=== PATIENT | female | born 1965 ===

== ENCOUNTER 2018-01-31 09:30 | Day surgery (SDC) | payer BC ==
[2018-01-30 10:44] LABS: HEMOGLOBIN 13.9 g/dL (12-16); MCH 29.9 pg (26.0-34.0); MCHC 34.8 g/dL (31.0-37.0); MEAN PLATELET VOLUME 10.4 fL (7.4-10.4); RBC 4.65 10x6/uL (4.00-5.40); RDW 12.8 % (11.5-14.5); WBC 3.8 10x3/uL (4.8-10.8)
[~2018-01-31] VITALS: Ht 175.3 cm; Wt 106.8 kg
--- NOTE | ~2018-01-31 | OP ---
PATIENT NAME: PEPITO HERNÁNDEZ MEDICAL RECORD: [id number] :65 LOCATION:D.OPS ADMISSION DATE: SURGEON: KENTON PEREZ DATE OF OPERATION: 01/31/2018 SURGEON: Kenton Perez DPM PREOPERATIVE DIAGNOSES: 1. Hallux rigidus, left foot. 2. Ingrown toenail, left great toe. POSTOPERATIVE DIAGNOSES: 1. Hallux rigidus, left foot. 2. Ingrown toenail, left great toe. PROCEDURE: 1. First metatarsal osteotomy, left foot. 2. Permanent chemical removal of medial and lateral borders, left great toe nail. ANESTHESIA: General. HEMOSTASIS: Pneumatic ankle tourniquet inflated to 250 mmHg. ESTIMATED BLOOD LOSS: Minimal. MATERIALS: One [employer] 2.5 headless screw, 3-0 Vicryl, 5-0 Vicryl, 4-0 nylon. INJECTABLES: A 10 cc of 0.5% bupivacaine plain and 20 cc of 1.0% lidocaine plain. The patient has longstanding history of pain associated with the first metatarsophalangeal joint as well as an ingrown toenail. She had previously undergone a cheilectomy type procedure on this joint. She has redeveloped pain in the area. I have discussed with her the proposed procedure, risks and benefits were discussed. Complications were reviewed. All questions were answered. She does understand that we will evaluate the health of the joint intraoperatively. If the joint has a healthy amount of cartilage remaining, we will proceed with the shortening first metatarsal osteotomy. If the joint is too badly eroded, we will perform a first metatarsophalangeal joint arthrodesis. All questions answered. DESCRIPTION OF PROCEDURE: The patient was brought in the operating room and placed on the operating table in supine position. A timeout was called with Dr. Perez who identified the patient, the surgical site, and surgery to be performed. Once appropriate anesthesia was obtained, the foot was prepped and draped in the usual aseptic manner. Pneumatic ankle tourniquet was inflated to 250 mmHg on the well-padded left ankle. Attention was directed to the dorsal aspect of the first metatarsophalangeal joint where a 6 cm linear incision was made just medial to the extensor hallucis longus tendon. This incision was carried deep to soft tissue with care being OPERATIVE REPORT [id number] PEPITO HERNÁNDEZ S taken to retract all vital neurovascular structures. All bleeders were cauterized along the way. The periosteum was then reflected from the first metatarsophalangeal joint thus revealing a hypertrophied dorsal exostosis. The dorsal exostosis was removed with a sagittal saw. The first metatarsophalangeal joint was then opened and the joint was inspected. She was found to have a greater than 50% cartilage on the head of the first metatarsal and all cartilage remained present on the base of the proximal phalanx. At this time, the decision was made to perform the shortening osteotomy. Next, utilizing the sagittal saw, a V-shaped osteotomy was created in the head of the first metatarsal. This was a through and through osteotomy with the apex oriented distally. We then made a parallel cut to the dorsal cut to remove a small wedge of bone thus shortening the first metatarsal. The capital fragment was then impacted upon the first metatarsal shaft. Temporary fixation was obtained utilizing K-wire. Next, utilizing manufacture's recommended technique, one 2.5 mm x 12 mm [employer] screw was placed across the osteotomy. Excellent fixation was noted at this time. Next, a sagittal saw was utilized to remove any remaining bony prominence. The surgical site was irrigated with copious amounts of normal sterile saline via bulb syringe. The first metatarsophalangeal joint was put through a range of motion. The osteotomy was noted to be in good condition with no movement at the osteotomy site. Range of motion had increased from the preoperative situation. The periosteum was reapproximated and coapted utilizing 3-0 Vicryl. The subcutaneous was then reapproximated and coapted using 5-0 Vicryl. The skin was then reapproximated and coapted utilizing 4-0 nylon. A dressing consisting of Xeroform and copious 4 x 4s and antibiotic ointment was applied to the surgical site. PROCEDURE NUMBER 2: Partial permanent chemical matrixectomy, medial and lateral borders, left great toe. Using sterile instrumentation, the medial and lateral ingrown nails were split with a scalpel blade and removed. The area was then dried with cotton tip. Next, a matrixectomy was performed with 10% NaOH and cotton tip for 10 seconds to the exposed matrix. The nail grooves were then flushed with copious amounts of normal sterile saline. Both the medial and lateral nail grooves were curetted free of all debris. Antibiotic ointment was then applied to the nail grooves, further dressing consisting of a further 4 x 4's, Kerlix, Angel bandage, and Coban was applied to the left foot. The pneumatic ankle tourniquet was deflated and cap refill time is immediate to all digits of the left foot. The patient tolerated the procedure and anesthesia well. She left the operating with vital signs stable and capillary refill time intact. The patient was discharged home with instructions to ice and elevate the left foot. She was dispensed prescriptions for [place] 7.5/325, Phenergan 25 mg, and ibuprofen 800 mg. She has my cell phone number for any after difficulties. She was dispensed a boot to help further offload the foot and we will follow up with her next week in the office and there were no complications with this procedure. TRANSINT:[id number] Voice Confirmation ID: [id number] DOCUMENT ID: [id number] OPERATIVE REPORT [id number] PEPITO HERNÁNDEZ DAVID J at 1200 CC: [id number] DICTATION DATE: 01/31/18 1338 GENERAL PEDIATRICIAN: 01/31/18 1403 [facility] 01/31/[address] [id number]
[~2018-01-31 09:30] MED LIST: ESTRADIOL VG; MICARDIS HCT 801 TAB PO; NAPROSYN500 MG PO; ROBAXIN500 MG PO; XANAX0.5 MG PO
[2018-01-31 10:09] VITALS: BP 125/74; Ht 175.3 cm; Wt 106.8 kg
== END 2018-01-31 15:30 | disposition home or self-care (01) ==
LOC: D.OPS 09:30 → D.PAN 11:30 → D.OPS 11:30
PROVIDERS: Anesthesiology
DX: M20.22 Hallux rigidus, left foot (principal); L60.0 Ingrowing nail; Z01.812 Encounter for preprocedural laboratory examination